=== PATIENT | female | born 1980 | race Caucasian/White ===

== ENCOUNTER → 2021-03-09 | Outpatient (CLI) | payer MEDICAID, MEDICARE ==
[~2021-03-09] MED LIST: ALPR1TAB2 PO; ALPR1TAB21; CIPRO; CRS350T PO; GBPN300C; HYDR-3583; KEPPRA; LEVE500T6 PO; METR500T PO; NITR-65; OXYC-109 PO; OXYC-12 PO; PARO30TA74 PO; PHEN200T27; TYLENOL; VESICARE; VICODIN; XANAX; ZANAFLEX
--- NOTE | 2021-03-09 16:34 | Diagnostic Imaging Report ---
PROCEDURE: CT abdomen and pelvis without contrast. TECHNIQUE: Multiple contiguous axial images were obtained through the abdomen and pelvis without the use of intravenous contrast. Auto Exposure Controls were utilized during the CT exam to meet ALARA standards for radiation dose reduction. INDICATION: Left-sided pain. COMPARISON: Exam compared to 09/08/2010. FINDINGS: There is no hydroureteronephrosis. There are two punctate 2 mm calcifications within the left middle and lower third consistent with nonobstructing calculi and the right kidney showed a minute 1 mm radiopacity an upper pole calyx, nonobstructing. No perinephric or periureteric edema. No radiopaque ureteral stone. The unopacified urinary bladder is normal. There is some extra ureteropelvic phleboliths. There is no diverticulitis. Surgical clips in the right lower quadrant are presumed previous appendectomy. No perienteric or pericolonic edema. No segmental small or large bowel wall thickening. No inflammatory process. Uterus and adnexa appeared unremarkable. The liver, gallbladder, bile ducts, spleen, adrenals, and pancreas are all unremarkable. The aorta is nonaneurysmal. IMPRESSION: Punctate tiny nonobstructing intrarenal stones. No opaque ureteral calculus or hydronephrosis. Remaining abdominopelvic solid and hollow viscera are unremarkable at this nonenhanced exam. Dictated by: Dictated on workstation # [id number]
== END ==
LOC: RAD 16:00
PROVIDERS: ATTEND Nurse Practitioner Family
DX: N20.0 Calculus of kidney (principal)
CPT/HCPCS: 74176

== ENCOUNTER → 2021-11-04 | Outpatient (CLI) | payer MEDICARE ==
--- NOTE | 2021-11-04 10:09 | Diagnostic Imaging Report ---
PROCEDURE: US Gallbladder. TECHNIQUE: Multiple real-time grayscale images were obtained over the right upper quadrant in various projections. INDICATION: Right upper quadrant pain Liver parenchyma is homogeneous with normal echotexture. There are no gallstones. There is no gallbladder wall thickening. Common duct is not dilated. The pancreas appears normal. Aorta and IVC are normal. Right kidney measures 9.6 cm in length. There is no ascites. IMPRESSION: Unremarkable gallbladder ultrasound. Dictated by: Dictated on workstation # [id number]
== END | disposition home or self-care (01) ==
LOC: RAD 09:45
PROVIDERS: ATTEND Surgery
DX: R10.11 Right upper quadrant pain (principal)
CPT/HCPCS: 76705

== ENCOUNTER → 2021-11-19 | Outpatient (CLI) | payer MEDICARE ==
[~2021-11-19] MED LIST changes: +CATHETER FLUSH 10 ML SYR IVP PRN
--- NOTE | 2021-11-19 13:49 | Diagnostic Imaging Report ---
EXAMINATION: Gallbladder scintigraphy HISTORY: Right upper quadrant pain COMPARISON: None available. TECHNIQUE: Anterior scintigraphic imaging of the abdomen was performed after the intravenous administration of 5.43 mCi Tc-99m Choletec. FINDINGS: The upper abdomen was imaged for 30 minutes with the gamma camera. There is prompt homogeneous uptake of radiopharmaceutical by the liver. There is activity in the common duct and gallbladder by 10 minutes. Small bowel activity is seen by 15 minutes. At 30 minutes, the patient received Ensure Plus by mouth. After additional 60 minutes, the gallbladder ejection fraction was calculated to be 45% (normal is >35%) IMPRESSION: 1. Patent common and cystic bile ducts. 2. Normal gallbladder ejection fraction. Dictated by: Dictated on workstation # [id number]
== END ==
LOC: CARD 11:06
PROVIDERS: ATTEND Surgery
DX: R10.11 Right upper quadrant pain (principal)
CPT/HCPCS: 78227

== ENCOUNTER 2021-12-13 16:46 | Emergency (ER) | payer MEDICARE ==
[~2021-12-13] VITALS: Ht 160 cm; Wt 55.3 kg
[~2021-12-13 16:46] MED LIST changes: -CATHETER FLUSH 10 ML SYR IVP PRN
--- NOTE | 2021-12-13 17:27 | ED Hip Pain/Injury ---
General Chief Complaint: Hip/Pelvic Problems Stated Complaint: L HIP/LEG PAIN Source: patient (SULEMA LOMBARDO) History of Present Illness Date Seen by Provider: Dec 13, 2021 Time Seen by Provider: 17:22 Initial Comments This is a 41-year-old female that presents to the emergency room for evaluation of left back and hip pain. She has had symptoms for several months but states this feels like getting worse. She has not seen a primary care doctor for this. She states that laying still seems to make the pain worse and ambulation tends to make it better. She has no loss of bowel or bladder function, fever, chills and denies trauma Location: hip (L) Method of Injury: unknown (SULEMA LOMBARDO) Allergies and Home Medications Allergies Coded Allergies: ibuprofen (Unverified Allergy, Intermediate, 12/25/08) latex (Verified Allergy, Intermediate, 08/21/07) clarithromycin (Unverified Allergy, Mild, 08/10/09) codeine (Unverified Allergy, Mild, 09/27/08) dextromethorphan (Unverified Allergy, Mild, 08/10/09) ketorolac (Unverified Allergy, Mild, 08/10/09) morphine (Unverified Allergy, Mild, 08/10/09) phenazopyridine (Unverified Allergy, Mild, 07/02/09) propoxyphene (Unverified Allergy, Mild, 01/22/09) pseudoephedrine (Unverified Allergy, Mild, 08/10/09) tizanidine (Unverified Allergy, Mild, itching, headache, 01/11/10) Sulfa (Sulfonamide Antibiotics) (Verified Allergy, Unknown, 08/01/07) guaifenesin (Verified Allergy, Unknown, 08/01/07) levofloxacin (Verified Allergy, Unknown, 06/15/08) naproxen (Unverified Allergy, Unknown, 07/02/09) tramadol (Verified Allergy, Unknown, 06/15/08) meperidine (Unverified Adverse Reaction, Severe, 12/25/08) Uncoded Allergies: CODIENE (Allergy, Mild, 09/27/08) TORDOL (Allergy, Mild, 09/27/08) Patient Home Medication List Home Medication List Reviewed: Yes (SULEMA LOMBARDO) Methocarbamol (Methocarbamol) 750 Mg Tablet, 750 MG PO TID Prescribed by: Jesus Lombardo on 12/13/211739 Methylprednisolone (Methylprednisolone Dose Pack) 4 Mg Tab.ds.pk, 4 MG PO UD Prescribed by: Jesus Lombardo on 12/13/211739 Review of Systems Constitutional: no symptoms reported EENTM: no symptoms reported Respiratory: no symptoms reported Cardiovascular: no symptoms reported Gastrointestinal: no symptoms reported Genitourinary: no symptoms reported Musculoskeletal: back pain, joint pain Skin: no symptoms reported (SULEMA LOMBARDO) Past Ojwkteq-Oiqcek-Uecaqk Hx Patient Social History Tobacco Use?: Yes (SULEMA LOMBARDO) Immunizations Up To Date Tetanus Booster (TDap): Unknown (SULEMA LOMBARDO) Seasonal Allergies Seasonal Allergies: No (SULEMA LOMBARDO) Past Medical History Appendectomy, Ear Surgery, Hysterectomy, Renal Headaches /Migraines, Seizure Disorder Reproductive Disorders: Yes (ENDOMETRIOSIS, CERVICAL DYSPLASIA) Female Reproductive Disorders: Endometriosis, Ovarian Cyst Kidney Stones, UTI-Chronic Chronic Back Pain Hearing Impairment: Deaf Anxiety (SULEMA LOMBARDO) Family Medical History Arthritis 19 MOTHER (started at age 38) Not obtainable due to adoption 19 FATHER (mva at 41 yrs old) Physical Exam Vital Signs Vital Signs - First Documented 12/13/21 17:02 Temp 36.1 Pulse 82 Resp 17 B/P (MAP) 115/60 (78) O2 Delivery Room Air (JOHN GARZA MD) Vital Signs Capillary Refill : (SULEMA LOMBARDO) Height, Weight, BMI Height: 5'6.00" Weight: 107lbs. 6.4oz. 48.978814oo; BMI Method:Estimated General Appearance: No Apparent Distress, WD/WN HEENT: PERRL/EOMI Neck: Full Range of Motion Cardiovascular: Regular Rate, Rhythm Respiratory: Chest Non Tender Gastrointestinal: Normal Bowel Sounds, Non Tender, Soft Back: Normal Inspection, Muscle Spasm (left lumbar paraspinal muscle ttp) Extremity: Other (pain with ROM of left hip. No clicks or deformity. ) Neurologic/Psychiatric: Alert, Oriented x3, strategic marketing manager II-XII Norm as Tested (SULEMA LOMBARDO) Progress/Results/Core Measures Results/Orders Medications Given in ED Current Medications Medications Dose Ordered Sig/Alan Route Start Time Stop Time Status Last Admin Dose Admin Dexamethasone Sodium Phosphate 4 mg ONCE ONCE IM 12/13/21 17:30 12/13/21 17:31 DC 12/13/21 17:33 4 MG Methylprednisolone Acetate 40 mg ONCE ONCE IM 12/13/21 17:30 12/13/21 17:31 DC 12/13/21 17:32 40 MG Orphenadrine Citrate 60 mg ONCE ONCE IM 12/13/21 17:30 12/13/21 17:31 DC 12/13/21 17:33 60 MG (JOHN GARZA MD) Vital Signs/I&O 12/13/21 17:02 Temp 36.1 Pulse 82 Resp 17 B/P (MAP) 115/60 (78) O2 Delivery Room Air (JOHN GARZA MD) Departure Communication (Admissions) Patient is afebrile, nontoxic and in no distress. She does have quite a bit of left lumbar paraspinal muscle tenderness and some pain with range of motion of the left hip. At this time there is no evidence or suspicion of fracture, dislocation, discitis, epidural abscess, cord compression or other emergent condition. The patient will be treated symptomatically and I recommended that she follow-up closely with primary care or return to the emergency room if worse. (SULEMA LOMBARDO) Impression Primary Impression: Acute lumbar myofascial strain Additional Impression: Left hip pain Disposition: 01 HOME, SELF-CARE Condition: Stable Departure-Patient Inst. Decision time for Depature: 17:33 (SULEMA LOMBARDO) Referrals: GAEL MARQUEZ MD (PCP/Family) Primary Care Physician Patient Instructions: Low Back Pain in Adults, Back Muscle Strain (DC), Hip P ain ED Add. Discharge Instructions: Please follow-up closely with the primary care team as we discussed. Return to the emergency room with any severe changes or worsening of your symptoms. All discharge instructions reviewed with patient and/or family. Voiced understanding. Scripts Methylprednisolone (Methylprednisolone Dose Pack) 4 Mg Tab.ds.pk 4 MG PO UD for 6 Days, #21 PKG PER DOSE PACK INSTRUCTIONS Prov: SULEMA LOMBARDO 12/13/21 Methocarbamol (Methocarbamol) 750 Mg Tablet 750 MG PO TID for Back Pain for 5 Days, #15 TAB Prov: SULEMA LOMBARDO 12/13/21 ATTENDING PHYSICIAN NOTE: I was physically present as attending physician in the emergency department d uring the care of this patient, but I was not directly involved in the decision making or delivery of care for this patient. (JOHN GARZA MD) SULEMA LOMBARDO Dec 13, 2021 17:27 JOHN GARZA MD Dec 13, 2021 20:16
[2021-12-13] MEDS ORDERED: methylPREDNISolone 40 MG/ML (DEPO MEDROL) VIAL IM ONE (17:30)
[2021-12-13] MEDS ORDERED: ORPHENADRINE 60 MG/2 ML (NORFLEX) AMP (ED ONLY) IM ONE (17:30)
[2021-12-13] MEDS ORDERED: METH-732 PO (17:40)
[2021-12-13] MEDS ORDERED: METH4TAB10 PO (17:40)
[2021-12-13 17:53] VITALS: BP 137/82
== END 2021-12-13 17:53 | disposition home or self-care (01) ==
LOC: EDUNIT# 16:46 → ER 16:47
DX: S39.012A Strain of muscle, fascia and tendon of lower back, initial encounter (principal); M25.552 Pain in left hip; Z91.040 Latex allergy status; X58.XXXA Exposure to other specified factors, initial encounter
CPT/HCPCS: 99281

== ENCOUNTER 2021-12-16 06:15 | Outpatient (RCR) | payer MEDICARE ==
[~2021-12-16] VITALS: Ht 165.1 cm; Wt 58.5 kg
[~2021-12-16 06:15] MED LIST changes: +METH-732 PO; +METH4TAB10 PO
[2021-12-17] MEDS ORDERED: OMEP20CA18 PO (15:24)
[2021-12-17] MEDS ORDERED: NABU500T8 PO (15:24)
== END 2021-12-24 10:05 | disposition home or self-care (01) ==
LOC: PREOP 06:15
PROVIDERS: ATTEND Surgery
DX: Z01.818 Encounter for other preprocedural examination (principal)

== ENCOUNTER 2021-12-29 10:48 | Day surgery (SDC) | payer MEDICARE ==
[~2021-12-29] VITALS: Ht 165.1 cm; Wt 58.5 kg
[~2021-12-29 10:48] MED LIST changes: +NABU500T8 PO; +OMEP20CA18 PO
[2021-12-29] MEDS ORDERED: LACTATED RINGERS 1,000 ML IV STA (10:52)
--- NOTE | 2021-12-29 10:59 | Progress Note-Pre Operative ---
Pre-Operative Progress Note Date of Available H&P: Dec 07, 2021 Date H&P Reviewed: Dec 29, 2021 Time H&P Reviewed: 10:59 History & Physical: H&P Reviewed, Patient Examed, No changes noted Pre-Operative Diagnosis: epigastric pain, melena CURTIS LIU DO Dec 29, 2021 10:59
[2021-12-29 11:00] VITALS: BP 123/59
[2021-12-29] MEDS ORDERED: HURRICAINE EXT TUBE (BENZOCAINE) XX PRN (11:00)
[2021-12-29] MEDS ORDERED: MIDAZOLAM 2 MG/2 ML (VERSED) VIAL ONE (11:16)
[2021-12-29] MEDS ORDERED: PROPOFOL INJECTION 50 ML IV ONE (11:16)
--- NOTE | 2021-12-29 11:42 | Progress Note-Post Operative ---
Post-Operative Progess Note Surgeon (s)/Personal Financial Counselor (s) Surgeon CURTIS LIU DO Personal Financial Counselor: na Pre-Operative Diagnosis epigastric pain, melena Post-Operative Diagnosis reflux esophagitis, hiatal hernia, normal colon Procedure & Operative Findings Date of Procedure 12/29/21 Procedure Performed/Findings egd c biopsies colonoscopy Anesthesia Type per air commodore Estimated Blood Loss Estimated blood loss (mL): none Specimens/Packing Specimens Removed antrum, ge CURTIS LIU DO Dec 29, 2021 11:42
[2021-12-29] MEDS ORDERED: PANT40TA2 PO (11:43)
--- NOTE | 2021-12-29 11:43 | Discharge Inst-Simple/Standard ---
Discharge Inst-Standard Discharge Medications New, Converted or Re-Newed RX: Transmitted to Pharmacy Patient Instructions/Follow Up Plan of Care/Instructions/FU: 2 weeks Gaby Activity as Tolerated: Yes Discharge Diet: Regular Diet CURTIS LIU DO Dec 29, 2021 11:43
[2021-12-29 11:50] VITALS: BP 133/70
[2021-12-29 11:55] VITALS: BP 123/67
[2021-12-29 12:20] VITALS: BP 92/70
--- NOTE | 2021-12-29 14:19 | Anesthesia-General Post-Op ---
MAC Patient Condition Mental Status/LOC: Same as Preop Cardiovascular: Satisfactory Nausea/Vomiting: Absent Respiratory: Satisfactory Pain: Controlled Complications: Absent Post Op Complications Complications None Follow Up Care/Instructions Patient Instructions None needed. Anesthesiology Discharge Order Discharge Order Patient is doing well, no complaints, stable vital signs, no apparent adverse anesthesia problems. No complications reported per nursing. ALEX MOSS CRNA Dec 29, 2021 14:19
--- NOTE | 2021-12-29 16:03 | OPERATIVE REPORT ---
DATE OF SERVICE: 12/29/2021 PREOPERATIVE DIAGNOSES: Epigastric pain and melena. POSTOPERATIVE DIAGNOSES: Reflux esophagitis, small hiatal hernia, normal colon. PROCEDURE: EGD with biopsies, colonoscopy. SURGEON: Curtis Griffin DO ANESTHESIA: Per DIRECTOR OF LOGISTICS. ESTIMATED BLOOD LOSS: None. COMPLICATIONS: None. SPECIMENS: Antrum, GE junction. INDICATIONS: The patient is a 42-year-old female who has been having epigastric abdominal pain, melena. She understands risks and benefits of procedure and wished to proceed. Consent was signed in the chart. DESCRIPTION OF PROCEDURE: The patient was taken to the endoscopy suite, placed in left lateral recumbent position. Timeout was performed. Scope was inserted in mouth, down the esophagus, stomach and into the duodenum without difficulty. No polyps, masses or ulcerations within the duodenum. Scope was slowly retracted back to stomach where it was further insufflated. No polyps, masses or ulcerations. Biopsy of the antrum was obtained. Scope was retroflexed noting a small hiatal hernia, no other pathology. Scope was returned to its normal position, slowly withdrawn to distal esophagus, changes of reflux esophagitis present. Biopsy of GE junction was obtained. Scope was then slowly retracted back until completely removed. The patient had digital rectal exam was performed. No palpable polyps, masses or ulcerations. Scope was inserted in the rectum and advanced all the way to cecum with minimal difficulty. Prep was adequate. Scope was slowly retracted back. No polyps, masses or ulcerations in the cecum, ascending, transverse, descending and sigmoid colon. Once in the rectum, scope was retroflexed nothing no other pathology. Scope was returned to its normal position, slowly withdrawn until completely removed. The patient tolerated procedure well without any complications. She was taken to recovery room in stable condition. RECOMMENDATIONS: The patient will stop omeprazole and start Protonix 40 mg daily. Await biopsy results. We will need repeat colonoscopy in 10 years unless family history of colon cancer should then be 5 years, any issues before that be seen at that time. Job ID: [id number] DocumentID: [id number] Dictated Date: 12/29/2021 11:45:46 Lining Machine Tender Date: 12/29/2021 16:02:54 Dictated By: CURTIS GRIFFIN DO
== END 2021-12-29 12:25 | disposition home or self-care (01) ==
LOC: ENDO 10:48
PROVIDERS: ATTEND Surgery
DX: K21.00 Gastro-esophageal reflux disease with esophagitis, without bleeding (principal); K44.9 Diaphragmatic hernia without obstruction or gangrene; K31.89 Other diseases of stomach and duodenum; K92.1 Melena; F17.210 Nicotine dependence, cigarettes, uncomplicated; Z79.899 Other long term (current) drug therapy; Z90.89 Acquired absence of other organs
CPT/HCPCS: 88305

== ENCOUNTER → 2022-04-27 | Outpatient (CLI) | payer MEDICARE ==
[~2022-04-27] MED LIST changes: +PANT40TA2 PO
--- NOTE | 2022-04-27 14:30 | Diagnostic Imaging Report ---
INDICATION: Routine screening. No prior mammograms are available for comparison. This a baseline study. 2-D and 3-D bilateral screening mammography was performed with CAD. Both breasts are heterogeneously dense, limiting the sensitivity of mammography. There is a rounded density in the upper right breast best seen on MLO view. This may be laterally located on the CC view. There are also some calcifications in this area as well. Additional views are recommended. Left breast is unremarkable. Axillae are unremarkable. IMPRESSION: Right breast density and right breast calcifications. Additional views recommended for further evaluation. ACR BI-RADS Category 0: Incomplete. (Needs additional imaging evaluation). Result letter will be mailed to the patient. Note: At least 10% of breast cancer is not imaged by mammography. BI-RADS Category 0 Dictated by: Dictated on workstation # [id number]
== END ==
LOC: RAD 09:15
PROVIDERS: ATTEND Pediatrics
DX: Z12.31 Encounter for screening mammogram for malignant neoplasm of breast (principal); R92.1 Mammographic calcification found on diagnostic imaging of breast
CPT/HCPCS: 77063; 77067